=== PATIENT | female | born 1955 | race American Indian/Alaskan Native ===

== ENCOUNTER 2020-09-20 08:47 | Day surgery (SDC) | payer BC ==
[2020-09-20 09:36] LABS: Hematocrit 39.3 % (30.3-42.9); Hemoglobin 13.4 gm/dl (10.1-14.3); Mean Corpuscular HGB Conc 34 % (30-34); Mean Corpuscular Volume 94 fl (79-97); Platelet Count 158 K/mm3 (140-440); Red Blood Count 4.17 M/mm3 (3.65-5.03); Red Cell Distribution Width 13.7 % (13.2-15.2)
[2020-09-20 09:47] LABS: INR 0.96 (0.87-1.13)
[2020-09-20 09:48] LABS: BUN/Creatinine Ratio 20; Blood Urea Nitrogen 20 mg/dL (7-17); Hemolysis Index 1
[2020-09-20] MEDS ORDERED: SODIUM CHLORIDE 0.9% 500 ML 500 ML IV SCH (10:00)
[2020-09-20] MEDS ORDERED: HEPARIN/NS 5000 UNIT/500ML 1,000 ML IR ONE (10:16)
[2020-09-20] MEDS ORDERED: HEPARIN 10,000 UNITS/10 ML VIAL ONE (10:16)
[2020-09-20] MEDS ORDERED: VERAPAMIL 5 MG/2 ML INJ ONE (10:17)
[2020-09-20] MEDS: fentaNYL 100 MCG/2 ML INJ ONE ×2 (10:38→11:00)
[2020-09-20] MEDS: MIDAZOLAM 2 MG/2 ML INJ ONE ×2 (10:39→11:00)
[2020-09-20] MEDS: LIDOCAINE (2%) 20 MG/1 ML VIAL 20 ML MDV INFILTRATI ONE ×2 (10:39→11:01)
[2020-09-20 13:08] VITALS: BP 109/56
== END 2020-09-20 13:35 | disposition home or self-care (01) ==
LOC: CATHLABREC 08:47
PROVIDERS: ATTEND Internal Medicine
DX: I27.20 Pulmonary hypertension, unspecified (principal); I10 Essential (primary) hypertension; I11.0 Hypertensive heart disease with heart failure; I50.9 Heart failure, unspecified; E05.90 Thyrotoxicosis, unspecified without thyrotoxic crisis or storm; F41.9 Anxiety disorder, unspecified; Z91.040 Latex allergy status; Z88.0 Allergy status to penicillin; Z88.8 Allergy status to other drugs, medicaments and biological substances; Z79.899 Other long term (current) drug therapy; Z79.82 Long term (current) use of aspirin; Z98.49 Cataract extraction status, unspecified eye; Z87.440 Personal history of urinary (tract) infections; Z98.890 Other specified postprocedural states; Z98.891 History of uterine scar from previous surgery
CPT/HCPCS: 36415; 80048; 85027; 85610; 93005; 93451; 99156; C1894; J1644; J2250; J3010; J7040

== ENCOUNTER 2020-10-04 08:52 | Outpatient (CLI) | payer BC ==
--- NOTE | 2020-10-04 10:43 | XRay Report ---
CHEST 2 VIEWS INDICATION / CLINICAL INFORMATION: Routine left bundle branch block. COMPARISON: None available. FINDINGS: SUPPORT DEVICES: None. HEART / MEDIASTINUM: Mild cardiomegaly LUNGS / PLEURA: No significant pulmonary or pleural abnormality. No pneumothorax. ADDITIONAL FINDINGS: No significant additional findings. IMPRESSION: 1. Mild cardiomegaly Signer Name: Sahil Woody MD Signed: 10/04/2020 10:38 AM Workstation Name: [id number]
--- NOTE | 2020-10-04 10:58 | Nuclear Medicine Report ---
NUCLEAR MEDICINE PERFUSION SCAN INDICATION: PULMONARY HYPERTENSION. Shortness of breath. CORRELATION: Chest x-ray performed earlier today RADIOPHARMACEUTICAL: Perfusion: mCi Tc-99m MAA given IV FINDINGS: Perfusion images show symmetric and uniform radiotracer distribution throughout bilateral lung zones with no evidence of unmatched segmental perfusion defects. Normal cardiac silhouette. IMPRESSION: Very low probability perfusion scan for pulmonary embolism. Signer Name: Sid Earl Jr, MD Signed: 10/04/2020 10:53 AM Workstation Name: [id number]
== END 2020-10-04 08:53 | disposition home or self-care (01) ==
LOC: NM 08:52
PROVIDERS: ATTEND Internal Medicine Cardiovascular Disease
DX: I51.7 Cardiomegaly (principal); I26.99 Other pulmonary embolism without acute cor pulmonale; I27.20 Pulmonary hypertension, unspecified; I44.7 Left bundle-branch block, unspecified
CPT/HCPCS: 71046; 78580; A9540